=== PATIENT | male | born 1995 | race Caucasian/White ===

== ENCOUNTER 2019-06-25 11:50 | Emergency (ER) | payer OTHER ==
[~2019-06-25] VITALS: Ht 30.5 cm; Wt 102.1 kg
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
[2019-06-25 13:45] VITALS: BP 133/80
--- NOTE | 2019-06-25 13:59 | Diagnostic Imaging Report ---
Indication: Abdominal pain Technique: Continuous helical transaxial imaging of the abdomen and pelvis was obtained from the lung bases to the pubic symphysis. No intravenous contrast was administered. Coronal 2-D reformats were also obtained. Automatic Exposure Control was utilized. Total Dose length Product (DLP): 1084.[address] Dose Index Volume (CTDIvol): 18 mGy Comparison: none Findings: The lung bases are clear. Appendix is seen and appears normal. There is no evidence of bowel obstruction. There is no free fluid. Gallbladder is unremarkable. There is no organomegaly identified. More detailed evaluation of solid organs is not possible on this study done without IV contrast. There is no hydronephrosis or renal stones. The urinary bladder is unremarkable. There is no free fluid. IMPRESSION: Negative evaluation. The CT scanner at [facility] is accredited by the [employer] and the scans are performed using dose optimization techniques as appropriate to a performed exam including Automatic Exposure control.
[2019-06-25] MEDS ORDERED: IBUPROFEN600 MG ORAL (14:04)
[2019-06-25] MEDS ORDERED: ACETAMINOPHEN500 M3 ORAL (14:04)
--- NOTE | 2019-06-25 14:07 | NUR ---
ER DISCHARGE NOTE: Patient is cleared to be discharged per ERMD, pt is aox4, on room air, with stable vital signs. pt was given dc and prescription instructions, pt was able to verbalize understanding, pt id band removed without complications. pt is able to ambulate with steady gait. pt took all belongings.
[2019-06-25 14:12] VITALS: BP 133/80
== END 2019-06-25 14:07 | disposition home or self-care (01) ==
LOC: EMR 12:47
DX: M54.5 Low back pain (principal); V43.52XA Car driver injured in collision with other type car in traffic accident, initial encounter; Y92.410 Unspecified street and highway as the place of occurrence of the external cause
CPT/HCPCS: 74176; 99284